=== PATIENT | female | born 1995 | race Caucasian/White ===

== ENCOUNTER → 2017-08-10 | Outpatient (CLI) | payer OTHER ==
[~2017-08-10] MED LIST: OXYC-57 PO
--- NOTE | 2017-08-10 08:45 | DIAGNOSTIC IMAGING REPORT ---
L KNEE 4 OR MORE CLINICAL HISTORY: 22 years-old Female presenting with LEFT KNEE PAIN. TECHNIQUE: Frontal, sunrise, tunnel, and lateral views of the left knee were obtained. COMPARISON: None. FINDINGS: No acute fracture or malalignment. No advanced degenerative change. Large left knee joint effusion. No patellar subluxation. IMPRESSION: 1. No acute osseous injury. 2. Large knee joint effusion. Electronically signed by: Clint Earl M.D. 08/10/2017 8:44 AM Dictated Date/Time: 08/10/2017 8:43 AM
== END | disposition home or self-care (01) ==
LOC: C.RDSM 08:40
PROVIDERS: ATTEND Family Medicine
DX: S89.92XA Unspecified injury of left lower leg, initial encounter (principal); M25.462 Effusion, left knee; X58.XXXA Exposure to other specified factors, initial encounter

== ENCOUNTER → 2017-08-19 | Day surgery (SDC) | payer BC, OTHER ==
--- NOTE | 2017-08-18 17:23 | HISTORY & PHYSICAL EXAMINATION ---
DATE OF ADMISSION: 08/19/2017 CHIEF COMPLAINT: Left knee pain x2 weeks. HISTORY OF PRESENT ILLNESS: Patient is a pleasant 22-year-old female who is here today for preoperative history and physical. She is scheduled to have a left knee arthroscopy, partial medial meniscectomy versus medial meniscus repair, ACL reconstruction with patellar tendon autograft with Dr. Clint Potter on 08/19/2017 at the [facility]. She injured her left knee while playing rugby approximately 10-14 days ago. She was evaluated, placed on crutches at that time, there was suspicion for ACL tear. She had an MRI completed which showed a left ACL complete tear with medial meniscus tear and MCL sprain. She was seen and evaluated by Dr. Potter. Surgical intervention was discussed. She denies any other injuries. She states that her knee was painful in the beginning but that pain has subsided, feeling slightly better. She occasionally has some giving way type sensations, pain on the medial aspect of the knee. She has been wearing a brace and using crutches. She has had no previous history of injury on the left knee. PAST MEDICAL HISTORY: No significant past medical history. CURRENT MEDICATIONS: 1. Vitamin D3 2000 international units daily. 2. Magnesium 250 mg daily. ALLERGIES: SHE ALLERGIC TO PENICILLIN AND CEPHALOSPORINS WHICH BOTH CAUSED HIVES. PAST SURGICAL HISTORY: 1. [place] teeth extraction. 2. Laser eye surgery in 1996 and 1997. SOCIAL HISTORY: Denies any tobacco or drug use. 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 She does drink 2 alcoholic drinks per week. FAMILY HISTORY: Significant for her father who had hyperthyroidism and a parathyroidectomy and her mother who has hypothyroidism and is on daily medication. REVIEW OF SYSTEMS: She denies any headaches, migraines, seizures, syncopal episodes, lightheadedness or dizziness. Denies any frequent infections, poor wound healing, bleeding or clotting disorders. She denies any history of phlebitis, pulmonary embolism or DVTs. She denies any chest pain, shortness of breath, difficulty breathing. Denies any recent cough, cold, fevers, chills or hospitalization. Denies any heartburn, indigestion, nausea, vomiting, diarrhea or constipation. Denies any urinary symptoms. PHYSICAL EXAMINATION: GENERAL: She is alert and oriented x3. She is in no acute distress. Well-dressed, well-nourished female, normal mood and affect. VITAL SIGNS: Height is 5 feet 9 inches, weight is 160 pounds. HEENT: Head is atraumatic, normocephalic. Eyes: Extraocular movements intact. Pupils equal, round and reactive to light. Sclerae are normal. Ears: Hearing is grossly normal. Ear canals are impacted with cerumen bilaterally. Nose: Nares are patent bilaterally, normal turbinates. Throat: Oropharynx clear. Mucous membranes moist. Good dentition. Uvula midline. NECK: Supple. No lymphadenopathy, full range of motion, nontender to palpation. Trachea midline. LUNGS: Clear to auscultation bilaterally. No adventitious sounds. No accessory muscle use. Chest is nontender. HEART: Regular rate and rhythm, normal S1, S2, no murmurs appreciated. ABDOMEN: Soft, nontender, nondistended. Bowel sounds heard in all 4 quadrants. EXTREMITIES: Examination of her left knee reveals a moderate effusion on the left knee with some mild atrophy of her quadriceps. She has no posterior knee tenderness. Range of motion is 15 degrees of extension to about 125 degrees of flexion. Positive Braulio on the left. Mild increase in anterior translation of the anterior drawer. Negative posterior drawer. Negative flexion circumduction test. Negative Rossy's. Distal neurovascular is intact. RADIOLOGY IMAGES: X-rays of her left knee show no acute bony abnormality, fracture or dislocation. MRI of her left knee was taken and shows a complete ACL tear with medial meniscal tear and MCL sprain. IMPRESSION: Left anterior cruciate ligament tear and medial meniscus tear, left knee. PLAN: Patient is scheduled for a left knee arthroscopy, partial medial meniscectomy versus medial meniscal repair with ACL reconstruction with patellar tendon bone autograft with Dr. Potter on 08/19/2017 at [facility]. Risks and complications of surgery were explained to the patient and include but are not limited to infection, pain, bleeding, scarring, nerve and blood vessel damage, wound problems, weakness, stiffness, incomplete relief of symptoms, recurrent tear, blood clots, embolisms, heart attack, stroke and . All questions were answered, informed consent was obtained by Dr. Potter. Postoperative course was discussed. She has crutches which she will bring on the day of surgery. She will have a Game Ready for use in the training room. She will follow up with her resident athletic trainer in 3-5 days after surgery for dressing change. She will also follow up with Dr. Potter in 10-14 days postoperatively in the training room for suture removal. She is given a prescription for Percocet for postoperative pain control. The PDMP was checked with no issues identified. She will call with any further problems, questions, or concerns. She will be n.p.o. after midnight. She requires no preoperative EKG, lab work or medical clearance prior to surgery. All questions were answered today.
[~2017-08-19] MED LIST changes: +ATROPINE SULFATE 0.1 MG/ML 5ML SYR IV PRN; +CLINDAMYCIN 600 MG/54 ML D5W IV ONE; +CLINDAMYCIN 600MG IV SCH; +DEXAMETHASONE SOD INJ 4 MG/ML VIAL ONE; +EpHEDrine SULFATE INJ 50 MG/ML AMP IV PRN; +EpINEphrine INJ 1MG/ML AMP 1 MG/ML AMP ONE; +FENTANYL CITRATE INJ 50 MCG/1 ML 2 ML VIAL ONE; +LIDOCAINE HCL 1% MPF 5 ML VIAL ONE; +LIDOCAINE HCL 2% 2 ML VIAL (20MG/ML) ONE; +LIDOCAINE/EPINEPHRINE 1% 20 ML VIAL ONE; +MIDAZOLAM HCL 1 MG/ML 2ML VIAL ONE; +MoRPHine SULFATE 2 MG/ML CARP IV PRN; +MoRPHine SULFATE 4 MG/ML 1 ML CARP\\VIAL IV PRN; +ONDANSETRON INJ 2 MG/ML 2 ML VIAL IV PRN; +ONDANSETRON INJ 2 MG/ML 2 ML VIAL ONE; +OXYCODONE/ACETAMINOPHEN 5-325 TAB PO PRN; +PATIENT'S ALLERGY INFO NEEDS ENTERED SCH; +PROPOFOL IV EMULSION 10 MG/ML 20 ML VIAL IV ONE; +ROPIVACAINE 0.5% 5 MG/ML 30 ML VIAL ONE; +SODIUM CHLORIDE 0.9% 1000ML 1,000 ML IV SCH
--- NOTE | 2017-08-19 11:38 | History & Physical Bridge Note ---
H&P Re-Evaluation Bridge Note: I have examined the patient, reviewed the History & Physical and in the interval since the performance of the History & Physical I have noted the following changes of clinical significance: No changes noted
--- NOTE | 2017-08-19 15:38 | [facility] Post Operative Brief Note ---
Immediate Operative Summary Operative Date Aug 19, 2017. Pre-Operative Diagnosis Left Knee ACL Tear, Medial Meniscus Tear Post-Operative Diagnosis Same Procedure(s) Performed Left Knee Arthroscopy, medial meniscus repair, Anterior Cruciate Ligament Reconstruction With Patella Tendon Autograft Surgeon Dr. Potter Cyber Incident Responder Surgeon(s) Sebastián Roberts PA-C Estimated Blood Loss 20 Findings Consistent with Post-Op Diagnosis Specimens None Drains None Anesthesia Type General Regional Complication(s) none Disposition Accompanied Pt To Recovery: no Disposition: Recovery Room / PACU
--- NOTE | 2017-08-19 16:01 | Discharge Instructions-SurgCtr ---
Discharge Instructions Date of Service Aug 19, 2017. Visit Reason for Visit: Left Acl Tear/Medial Meniscus Tear Discharge Discharge Diagnosis / Problem: Left knee ACL tear/medial meniscus tear Discharge Goals Goal(s): Decrease discomfort, Improve function, Increase independence Activity Recommendations Activity Limitations: per Instructions/Follow-up section Weightbearing Status: Left non-weightbearing, Right weightbearing (as tolerated ) Anesthesia . Post Anesthesia Instructions: If you have had General Anesthesia or IV Sedation: * Do not drive today. * Resume driving when surgeon permits. * Do not make important decisions or sign legal documents today. * Call surgeon for: 1. Temperature elevations greater than 101 degrees F. 2. Uncontrollable pain. 3. Excessive bleeding. 4. Persistent nausea and vomiting. 5. Medication intolerance (nausea, vomiting or rash). * For nausea and vomiting use only clear liquids such as: tea, soda, bouillon until nausea subsides, then gradually increase diet as tolerated. * If you have any concerns or questions, call your surgeon's office. If physician is unavailable and it is an emergency, call 911 or go to the nearest emergency room. . Instructions / Follow-Up Instructions / Follow-Up The following instructions are a useful guide to questions you may have after your Anterior Cruciate Ligament Reconstruction surgery. If you have any questions contact the office at . ACTIVITY RECOMMENDATIONS: * Heavy manual labor is not permitted until 4-6 months after surgery. * Sports are not permitted until 6-9 months after surgery. z * Return to activity is individualized. * DRIVING: Driving is not permitted until 3-4 weeks after surgery at a minimum. Please ask your doctor when it is safe to resume driving. If you have an automatic vehicle and your left leg has been operated on, then you may begin driving as soon as you are comfortable and can drive safely. * BATHING: You may shower or sponge-bathe immediately after surgery. The dressing will need to be covered with a plastic bag or plastic wrap until the dressing is changed on the fourth or fifth day after surgery. Once the dressing has been changed on the fourth or fifth day after surgery, you may shower and get the incision wet. * Wash with regular soap and water. * Do not bathe (submerge the incision), soak, swim or use a hot tub until the incision is completely healed over with normal skin and the doctor has given the OK to proceed. * There is no need to apply any ointments, powders or salves to your incision. * Do not apply alcohol or hydrogen peroxide directly to the incision. Diluted peroxide (50:50 mixture with sterile saline) may be used to clean dried blood from around the incision area. WORK/SCHOOL: * You may return to sedentary work or school when you are feeling comfortable. This is usually 3-7 days after surgery. * Expect increased discomfort with increased activity. Continue to elevate and ice the leg as much as possible. DIET: * Resume previous diet. MEDICATIONS: * You will have a prescription for pain medication and an anti-inflammatory medication after surgery. Use the pain pills for severe pain and the anti-inflammatory for less severe pain. * Once the pain pills have run out, try to use the anti-inflammatory. If this is not effective then contact the office for assistance. * The pain medication may cause nausea, constipation and sleepiness. You should see how they affect you before driving or similar activity. * The anti-inflammatory may cause stomach upset and bleeding. If this occurs, let your doctor know immediately . * Some patients may need blood clot prevention. This can be done with either a pill or a simple shot. Your doctor will advise you on when to begin these medications and how to take them. * Do not take aspirin or other anti-inflammatory products (i.e. Advil or Aleve ) if taking blood thinner medication. * Take a stool softener like Colace or a stimulant like Senokot to prevent constipation. SPECIAL CARE INSTRUCTIONS: The following instructions are a useful guide to questions you may have after your surgery. If you have any questions contact the office at . ICE: * You have the option of an ice cooler, gel packs or ice bags. * If you have an ice cooler, refer to the instructions for that device. * If you do not have an ice cooler, then you will need to use ice bags or gel packs. * Do not apply ice directly to the skin. * Use a thin dressing or stockinet between the skin and ice bag. * Apply ice for 20-30 minutes and repeat every 2-4 hours. This is especially important for the first 7-10 days after surgery. * Once the pain improves, use ice as needed. * The ice cooler can be used continuously. ELEVATION: * Keep your leg elevated at or above the level of your heart as much as possible. * Expect some increased discomfort and swelling if you are standing for any length of time. * When lying down, avoid placing anything under your knee. Rather, prop your leg up by placing several pillows under your heel or calf. DRESSING: * Your dressing will be changed at your first therapy appointment approximately 4-5 days after surgery. * Band-Aids, tape strips or gauze may be applied. You may then change your dressing daily. * Always wash your hands prior to touching the incision area. * Reapply dressing followed by the Dustin wrap or Tubi-structural biologist stockinet, ice cooling pad and then the brace. * Once the stitches are removed, you may leave the wound open to air or cover with an Dustin Bandage or Tubi-structural biologist stockinet. * If you have been given a white elastic stocking (CHRISTINE hose), wear as much as possible for the first 1-3 weeks depending on swelling. * Expect some bloody drainage for the first few days after surgery. * Leave the tape strips in place for 5-7 days. * Band-Aids and gauze may be changed daily. CRUTCHES: * You will need to use crutches after surgery x 6 weeks. * You will be nonweightbearing left lower extremity 6 weeks after surgery. BRACE: * After surgery, you will be placed into a range of motion brace locked with your leg straight. This brace is to be worn at all times when walking (even with the crutches) and sleeping until your first doctors appointment. * The brace may be removed for therapy. * After your first therapy appointment, your therapist will open the brace to allow bending of the knee once your muscles are working better. * Until your first doctor's appointment, you should sleep with your brace locked with your knee fully straight. * If you have chosen to use a functional ACL brace then this brace will be supplied about 2-3 months after your surgery. During that time, you will attend therapy 2- 3 times per week. You will also need to do daily exercises for range of motion and strength as instructed. PROBLEMS/QUESTIONS: * If you have any problems such as severe pain, numbness, tingling or high fevers or if you have any questions, please contact the office at [phone]. * It is not uncommon to have some numbness and tingling after the surgery especially if you have had a nerve block done. This should gradually improve over the first 1- 2 days. If this persists longer or worsens then contact the office. FOLLOW UP VISIT: * If not already scheduled, please call the office at to schedule follow-up appointments for approximately 10 days and one month after surgery followed by monthly appointments thereafter. *Follow-up with your program trainer for dressing change in 3-5 days. *Follow-up with Dr. Potetr in the training room 10-14 days after surgery for suture removal. Diet Recommendations Home Diet: no limitations, resume previous diet Procedures Procedures Performed: Left Knee Arthroscopy, medial meniscus repair, Anterior Cruciate Ligament Reconstruction With Patella Tendon Autograft Pending Studies Studies pending at discharge: no Medical Emergencies . Who to Call and When: Medical Emergencies: If at any time you feel your situation is an emergency, please call 911 immediately. . Non-Emergent Contact Non-Emergency issues call your: Surgeon Call Non-Emergent contact if: temperature is above 101, your pain is not controlled, wound has increased drainage, wound has increased redness, wound has increased pain, you have any medication questions . . "Provider Documentation" section prepared by Dia Roberts. . [place] Drug Monitoring Program Search Results: patient reviewed within database, no issues identified
--- NOTE | 2017-08-19 16:04 | [facility] Operative Report ---
Operative Report Operative Date Aug 19, 2017. Pre-Operative Diagnosis Left Knee ACL Tear, Medial Meniscus Tear Post-Operative Diagnosis Same Procedure(s) Performed Left Knee Arthroscopy, medial meniscus repair, Anterior Cruciate Ligament Reconstruction With Patella Tendon Autograft Surgeon Dr. Potter Book Mender Surgeon(s) Sebastián Roberts PA-C Estimated Blood Loss 20 Specimens None Drains None Anesthesia Type General Regional Complication(s) none Disposition yes Recovery Room / PACU Indications Patient is a 22-year-old female status post a left knee injury approximately 2 weeks ago. She complained of instability and pain with swelling of her left knee. X-rays were taken and found no bony abnormality MRI was obtained and found to have a medial meniscal tear and MCL sprain and complete left ACL tear. Surgical intervention discussed and she wished to proceed with surgery. Risks and complications were explained the patient and informed consent was obtained. Description of Procedure Patient was taken to the operating room placed under general anesthesia. She was given a peripheral nerve block. She was given 600 mg of IV Cleocin for surgical prophylaxis. Timeout was performed. She was prepped and draped in routine sterile fashion. I was present during the entire case, please see Dr. Potter's operative report for further detail. Patient was awakened and transferred to the recovery room in stable condition. I attest to the content of the Intraoperative Record and any orders documented therein. Any exceptions are noted below.
[2017-08-19] MEDS: FENTANYL CITRATE INJ 50 MCG/1 ML 2 ML VIAL IV PRN ×2 (16:12→16:22)
--- NOTE | 2017-08-19 16:26 | [facility] Operative Report ---
Operative Report Operative Date Aug 19, 2017. Pre-Operative Diagnosis Left Knee ACL Tear, Medial Meniscus Tear Post-Operative Diagnosis Same Procedure(s) Performed Left Knee Arthroscopy, medial meniscus repair, Anterior Cruciate Ligament Reconstruction With Patella Tendon Autograft Surgeon Dr. Potter Pouch Maker Surgeon(s) Sebastián Roberts PA-C Estimated Blood Loss 20 Findings Complete tear of the ACL. Complex tear of the medial meniscus. Specimens None Anesthesia Laryngeal mask with abductor block. Complication(s) None Disposition Recovery Room / PACU Indications Patient's 22-year-old female. She plays rugby. She was injured approximately 1 -1/2 weeks ago. Her exam and MRI show a medial meniscus tear and a complete tear of the ACL. Her options were discussed and she elected to proceed with operative intervention. Description of Procedure Informed consent obtained. Patient identified as Jerrod Galindo. She identified the operative site as the left knee. I marked with my initials. Preop surgical timeout was performed. Preop dose of IV antibiotics was given. She was taken to the operating room and positioned supine on the operating room table. The anesthetic was administered. Tourniquet was applied to the left thigh. A lateral post was used for stressing the knee. After the timeout 1% lidocaine with epinephrine was injected in the knee joint fat pad and portal sites. She did not require any formal DVT prophylaxis during surgery. The exam under anesthesia revealed range of motion 4/0/140. Her range of motion is equal to the opposite side. She did not have any MCL laxity. The Lockman was 2 + positive with an indistinct endpoint she had a grade 1 pivot shift and her knee was otherwise stable with minimal serous effusion. Leg was prepped and draped in usual sterile fashion Inferolateral viewing portal superior lateral outflow portal and inferomedial working portals were established. Diagnostic arthroscopy was performed. The articular surface of the trochlea and patella suprapatellar pouch medial lateral gutters popliteal hiatus were normal. There is a complete tear of the ACL. The retropatellar fat pad was resected. The lateral compartment demonstrated normal meniscus and articular surfaces posterior lateral compartment normal. Medial compartment showed a complex tear of the medial meniscus. She had a bucket-handle tear which remained intact to the meniscal root. Posterior to this, the fragment attached to the capsule actually had the root torn completely or nearly completely at the level of the root. The rim with was about 4-5 mm. I cleaned the tear with the shaver. There was some complexity to the peripheral portion of the tear. Rasping was performed of the site as well as the jone-meniscal synovium. The Arthrex meniscal root repair guide was inserted into the knee and a guidepin was drilled into position and adjusted 1. The guidepin was inserted just posterior to the intact meniscal root. Prior to this I had made a midline longitudinal incision about 15 cm in length which would be used for patellar tendon graft harvest. I dissected medially over to the level of the MCL. Identified the location of the probable tibial tunnel and selected a location more medial and proximal to avoid any crisscrossing of the tunnels. Additionally I percutaneously perforated her MCL with an 18-gauge spinal needle which resulted in about 5 mm of joint opening allowing access to the joint and protection of the articular cartilage. After introducing the guidepin was overreamed with 4 mm reamer. I did not want to use a flip cutter as I think the flip cutter would essentially have damage the intact anterior portion of the root and therefore I elected to go with a smaller diameter type of drill. I debrided around this area with the shaver as well. Using the meniscal scorpion to luggage tag type stitches were applied to the posterior portion of the torn meniscal root then passed through a fiber stick up through the after mentioned tunnel and secured. Suture management was performed with the cannula and an accessory medial portal. Tension on the sutures reduce the meniscus. This was then preserved for later repair. At the conclusion of the procedure after the ACL had been fixated. I again confirmed that the meniscus was reduced with tension. A button was applied. The the button was actually located in mid substance of the MCL. I passed the stitches anteriorly underneath the MCL applied a button and tied this alternating posts. This was done with the knee in 30 of flexion and then I rechecked and confirmed that the meniscus was reduced. Previous to this I completed the repair using the ceterix novastitch. These were passed peripherally and then centrally and then tied with a SCOI knot. For circumferential stitches were applied resulting in excellent apposition and reduction. Attention was then turned to the ACL. The patella tendon was exposed. It was 30 mm in width. The central one third was harvested as a bone patellar tendon bone autograft. He was taken to the back table where it was fashioned into a graft of 100 mm in length the tibial block was 30 mm x 10 the patellar block 22 x 9 with a 50 mm tendon length. The remnants of the ACL were debrided. An accessory medial portal was utilized. The notch was not stenotic. The lateral intercondylar ridge and lateral bifurcate ridge were identified. A emre was placed at the anatomic center of the femoral ACL confirmed by measurements. A emre was then placed at the center of the tibial ACL footprint based upon anatomical landmarks. The tibial Arthrex ACL guide was inserted, set at 60. A guidepin was drilled into place and at the aforementioned location. It was then overreamed with a 10 mm reamer. The intra-and extra articular entrance of the tunnel were cleaned and the tunnel was dilated to 10 and beveled with a rasp. The knee was placed in a hyperflexed position. Through the medial accessory portal I guidepin was introduced K taking care to protect the medial femoral articular cartilage. A 10 x 25 mm socket was created. Bony debris was flushed of the knee and shuttling suture was passed. During the ACL reconstruction the tourniquet was inflated to 225 mmHg. Tourniquet time was approximately 75 minutes. The tourniquet was let down at the conclusion of the operation. The ACL graft was then passed into a retrograde fashion into the knee. It was secured in the femoral socket with an 8 x 20 rounded interference screw after using the graft not sure and the nitinol guidewire. This was done with the knee in a hyperflexed figure 4 position and through the accessory medial portal. The graft tightened a few millimeters in terminal extension. There was no roof wall or PCL impingement. Another interference screw 9 x 20 mm insert and anterior to the tibial bone block within the femoral tunnel. There was excellent fixation. Good tension on the graft. Pivot shift was absent although I was careful with this due to the meniscus repair. I also checked the Braulio maneuver which was equal to the opposite side endpoint firm. Stringy sutures removed from the knee. The patellar and tibial defects were bone grafted. The patellar tendon was closed with #1 Vicryl. The peritenon was closed over the bone graft securing it in place with interrupted and running 2-0 Vicryl. The patient was also noted to have some thickened fibrous the patella bursa. This was excised as it was encountered during the patella tendon graft harvest. Orthoscopic portals were closed with 4-0 nylon. The skin was closed with a 4-0 Monocryl. Leg was cleaned with wet and dry sponges and soft sterile dressing was applied full-length Dustin wrap and a hinged brace locked in extension. Patient was awakened from anesthesia without difficulty taken to the recovery room in stable condition. There were no specimens or complications. Counts were correct at the end of the case. Blood loss was proximal to 20 cc. At the conclusion of the operation spoke to patient's mother informed her my findings in detail postoperative instructions were given. The tourniquet was let down prior to Applying the dressing and there is no significant bleeding. She will be rehabilitated according to the ACL protocol with the exception that she will be nonweightbearing for 6 weeks due to her medial meniscal root repair. 10 mm tunnel dilators were utilized. I attest to the content of the Intraoperative Record and any orders documented therein. Any exceptions are noted below.
--- NOTE | 2017-08-19 16:26 | Anesthesia Progress Nt - [facility] ---
Anesthesia Post Op Note Date & Time Aug 19, 2017 at 16:26 Vital Signs Pain Intensity: 6.0 Vital Signs Past 12 Hours Date Time Temp Pulse Resp B/P (MAP) Pulse Ox O2 Delivery O2 Flow Rate FiO2 08/19/17 15:56 36.3 82 16 124/74 99 Mask 6 08/19/17 11:58 74 14 137/74 (95) 100 Oxymask 5 08/19/17 11:53 88 16 124/72 (89) 100 Oxymask 5 08/19/17 11:48 92 16 120/65 (83) 100 Oxymask 5 08/19/17 10:12 37.0 68 16 116/75 (89) 99 Room Air Notes Mental Status: alert / awake / arousable, participated in evaluation Pt Amnestic to Procedure: Yes Nausea / Vomiting: adequately controlled Pain: adequately controlled Airway Patency, RR, SpO2: stable & adequate BP & HR: stable & adequate Hydration State: stable & adequate Anesthetic Complications: no major complications apparent
[2017-08-19 16:56] VITALS: TEMP 36.6
[2017-08-19 17:56] VITALS: BP 118/75; PULSE 57; O2SAT 100
== END | disposition home or self-care (01) ==
LOC: X.SURG 09:38
PROVIDERS: ATTEND Physical Medicine & Rehabilitation Sports Medicine
DX: S83.512A Sprain of anterior cruciate ligament of left knee, initial encounter (principal); S83.232A Complex tear of medial meniscus, current injury, left knee, initial encounter; X58.XXXA Exposure to other specified factors, initial encounter; Z88.0 Allergy status to penicillin; Z79.899 Other long term (current) drug therapy; Z98.818 Other dental procedure status; Z98.890 Other specified postprocedural states

== ENCOUNTER → 2017-09-03 | Outpatient (CLI) | payer BC, OTHER ==
[~2017-09-03] MED LIST changes: -ATROPINE SULFATE 0.1 MG/ML 5ML SYR IV PRN; -CLINDAMYCIN 600 MG/54 ML D5W IV ONE; -CLINDAMYCIN 600MG IV SCH; -DEXAMETHASONE SOD INJ 4 MG/ML VIAL ONE; -EpHEDrine SULFATE INJ 50 MG/ML AMP IV PRN; -EpINEphrine INJ 1MG/ML AMP 1 MG/ML AMP ONE; -FENTANYL CITRATE INJ 50 MCG/1 ML 2 ML VIAL ONE; -LIDOCAINE HCL 1% MPF 5 ML VIAL ONE; -LIDOCAINE HCL 2% 2 ML VIAL (20MG/ML) ONE; -LIDOCAINE/EPINEPHRINE 1% 20 ML VIAL ONE; -MIDAZOLAM HCL 1 MG/ML 2ML VIAL ONE; -MoRPHine SULFATE 2 MG/ML CARP IV PRN; -MoRPHine SULFATE 4 MG/ML 1 ML CARP\\VIAL IV PRN; -ONDANSETRON INJ 2 MG/ML 2 ML VIAL IV PRN; -ONDANSETRON INJ 2 MG/ML 2 ML VIAL ONE; -OXYCODONE/ACETAMINOPHEN 5-325 TAB PO PRN; -PATIENT'S ALLERGY INFO NEEDS ENTERED SCH; -PROPOFOL IV EMULSION 10 MG/ML 20 ML VIAL IV ONE; -ROPIVACAINE 0.5% 5 MG/ML 30 ML VIAL ONE; -SODIUM CHLORIDE 0.9% 1000ML 1,000 ML IV SCH
== END | disposition home or self-care (01) ==
LOC: C.RDSM 10:41
PROVIDERS: ATTEND Physical Medicine & Rehabilitation Sports Medicine
DX: Z09 Encounter for follow-up examination after completed treatment for conditions other than malignant neoplasm (principal); M67.862 Other specified disorders of synovium, left knee